=== PATIENT | male | born 1945 | race Hispanic/Latino ===

== ENCOUNTER 2018-08-27 06:52 | Day surgery (SDC) | payer OTHER, MEDICARE ==
[~2018-08-27] VITALS: Ht 167.6 cm; Wt 81.1 kg
[~2018-08-27 06:52] MED LIST: SODIUM CHLORIDE 0.9% 1000ML 1,000 ML IV ONE
[2018-08-27 07:34] VITALS: BP 169/64
[2018-08-27] MEDS ORDERED: PROPOFOL 10 MG/ML 20ML VIAL IV ONE (07:51)
[2018-08-27] MEDS ORDERED: CARB-38 PO (07:58)
[2018-08-27] MEDS ORDERED: DIPH25 PO (07:58)
[2018-08-27] MEDS ORDERED: ATOR40TA71 PO (07:58)
[2018-08-27] MEDS ORDERED: FLUT1DIS3 IH (07:58)
[2018-08-27] MEDS ORDERED: OLAN7.5T9 PO (07:58)
[2018-08-27] MEDS ORDERED: ERGO500014 PO (07:58)
[2018-08-27] MEDS ORDERED: ISOS60TA4 PO (07:58)
[2018-08-27] MEDS ORDERED: FURO20TA4 PO (07:58)
[2018-08-27] MEDS ORDERED: SITA25TA5 PO (07:58)
[2018-08-27] MEDS ORDERED: UMEC62.5 IH (07:58)
[2018-08-27] MEDS ORDERED: AMLO5TAB9 PO (07:58)
[2018-08-27] MEDS ORDERED: CARV25TA PO (07:58)
[2018-08-27] MEDS ORDERED: VITAMIN B6 (07:58)
[2018-08-27] MEDS ORDERED: OMEG-148 PO (07:58)
[2018-08-27] MEDS ORDERED: FERS325 PO (07:58)
[2018-08-27] MEDS ORDERED: AMAN100C12 PO (07:58)
[2018-08-27] MEDS ORDERED: ASPI-555 PO (07:58)
[2018-08-27] MEDS ORDERED: SERT25TA5 PO (07:58)
[2018-08-27] MEDS ORDERED: ALEN70TA10 PO (07:58)
[2018-08-27] MEDS ORDERED: LOSA50TA64 PO (07:58)
[2018-08-27] MEDS ORDERED: TAMS0.4C32 PO (07:58)
[2018-08-27] MEDS ORDERED: POLY17PO4 PO (07:58)
[2018-08-27] MEDS ORDERED: OMEP20CA10 PO (07:58)
[2018-08-27 08:05] VITALS: BP 119/45
[2018-08-27 08:10] VITALS: BP 125/51
[2018-08-27 08:15] VITALS: BP 137/56
[2018-08-27 08:23] VITALS: BP 153/56
== END 2018-08-27 08:39 | disposition home or self-care (01) ==
LOC: DAH 06:52 → ENDO 06:52
PROVIDERS: ATTEND Internal Medicine
DX: K29.50 Unspecified chronic gastritis without bleeding (principal); K31.89 Other diseases of stomach and duodenum; D50.9 Iron deficiency anemia, unspecified; K44.9 Diaphragmatic hernia without obstruction or gangrene; K22.8 Other specified diseases of esophagus; Z79.899 Other long term (current) drug therapy; K21.0 Gastro-esophageal reflux disease with esophagitis; F41.9 Anxiety disorder, unspecified; F32.9 Major depressive disorder, single episode, unspecified; M81.0 Age-related osteoporosis without current pathological fracture; E78.5 Hyperlipidemia, unspecified; D64.9 Anemia, unspecified; E07.9 Disorder of thyroid, unspecified; I25.10 Atherosclerotic heart disease of native coronary artery without angina pectoris; E11.9 Type 2 diabetes mellitus without complications; R00.1 Bradycardia, unspecified; I45.10 Unspecified right bundle-branch block
CPT/HCPCS: 43239; 82948; 88305; 93005; A4606; J2704; J7030

== ENCOUNTER 2019-10-26 08:48 | Day surgery (SDC) | payer OTHER, MEDICARE ==
[~2019-10-26] VITALS: Ht 170.2 cm; Wt 79.4 kg
[~2019-10-26 08:48] MED LIST changes: +ALEN70TA10 PO; +AMAN100C12 PO; +AMAN100T PO; +AMLO5TAB9 PO; +ATOR40TA71 PO; +CARB-38 PO; +CARV25TA PO; +ESOM40CA54 PO; +FERS325 PO; +ISOS60TA4 PO; +LEVO100T12 PO; +LISI-613 PO; +OLAN10TA20 PO; +OLAN2.5T3 PO; +OMEG-148 PO; +Pramipexole PO; +SERT25TA5 PO; +SITA25TA5 PO; -SODIUM CHLORIDE 0.9% 1000ML 1,000 ML IV ONE; +TAMS0.4C32 PO; +vitamin b PO
[2019-10-26] MEDS ORDERED: SODIUM CHLORIDE 0.9% 1000ML 1,000 ML IV ONE (10:21)
[2019-10-26 11:14] VITALS: BP 156/67
[2019-10-26] MEDS ORDERED: PROPOFOL 10 MG/ML 20ML VIAL IV ONE (11:49)
[2019-10-26 12:00] VITALS: BP 111/55
[2019-10-26] MEDS ORDERED: LACT10SO46 PO (12:00)
[2019-10-26] MEDS ORDERED: METF-444 PO (12:00)
[2019-10-26] MEDS ORDERED: DOXA8TAB81 PO (12:00)
[2019-10-26] MEDS ORDERED: FURO20TA4 PO (12:00)
[2019-10-26] MEDS ORDERED: ALBU8.5H8 IH (12:00)
[2019-10-26 12:05] VITALS: BP 127/75
[2019-10-26 12:10] VITALS: BP 140/77
[2019-10-26 12:15] VITALS: BP 134/55
[2019-10-26 12:20] VITALS: BP 131/55
== END 2019-10-26 12:45 | disposition home or self-care (01) ==
LOC: ENDO 08:48 → DAH 08:48 → ENDO 12:45
PROVIDERS: ATTEND Internal Medicine Gastroenterology
DX: K21.0 Gastro-esophageal reflux disease with esophagitis (principal); K29.70 Gastritis, unspecified, without bleeding; K31.89 Other diseases of stomach and duodenum; K74.60 Unspecified cirrhosis of liver; D37.9 Neoplasm of uncertain behavior of digestive organ, unspecified; J43.9 Emphysema, unspecified; I10 Essential (primary) hypertension; E78.5 Hyperlipidemia, unspecified; F41.9 Anxiety disorder, unspecified; F32.9 Major depressive disorder, single episode, unspecified; E11.9 Type 2 diabetes mellitus without complications; I25.10 Atherosclerotic heart disease of native coronary artery without angina pectoris; M81.0 Age-related osteoporosis without current pathological fracture; F17.210 Nicotine dependence, cigarettes, uncomplicated; Z79.4 Long term (current) use of insulin; Z86.010 Personal history of colon polyps; Z82.49 Family history of ischemic heart disease and other diseases of the circulatory system; Z82.3 Family history of stroke; Z82.5 Family history of asthma and other chronic lower respiratory diseases; Z79.899 Other long term (current) drug therapy
CPT/HCPCS: 43239; 82948; A4215; A4221; A4222; A4223; A4606; A4620; A4657; A4663; J2704; J7030

== ENCOUNTER 2023-11-12 06:52 | Day surgery (SDC) | payer MEDICARE ==
[~2023-11-12] VITALS: Ht 167.6 cm; Wt 81.6 kg
[2023-11-12] VITALS (11 sets, daily range): BP systolic 90–154; BP diastolic 50–73; PULSE 59–77; RESP 13–19
[~2023-11-12 06:52] MED LIST changes: +ALBU8.5H8 IH; -ALEN70TA10 PO; +ALEN70TA80 PO; -AMAN100C12 PO; +AMAN100C14 PO; -AMAN100T PO; +AMLO-257 PO; -AMLO5TAB9 PO; +DOXA8TAB81 PO; -ESOM40CA54 PO; +ESOM40CA66 PO; -FERS325 PO; +FURO20TA4 PO; -ISOS60TA4 PO; +ISOS60TA77 PO; +LACT10SO46 PO; -LISI-613 PO; +LISI20TA24 PO; +METF-444 PO; -OLAN10TA20 PO; +OLAN10TA73 PO; -OMEG-148 PO; +SERT-438 PO; -SERT25TA5 PO; -vitamin b PO
[2023-11-12] MEDS: 0.9%NACL 1000ML 1,000 ML IV ONE (08:30)
[2023-11-12] MEDS ORDERED: PROPOFOL 10 MG/ML 20ML VIAL IV ONE (09:19)
== END 2023-11-12 11:59 | disposition home or self-care (01) ==
LOC: ENDO 06:52 → DAH 06:52 → ENDO 11:59
PROVIDERS: ATTEND Internal Medicine Gastroenterology
DX: Z12.11 Encounter for screening for malignant neoplasm of colon (principal); K74.69 Other cirrhosis of liver; K76.6 Portal hypertension; K63.5 Polyp of colon; K62.1 Rectal polyp; K57.30 Diverticulosis of large intestine without perforation or abscess without bleeding; K31.89 Other diseases of stomach and duodenum; K22.70 Barrett's esophagus without dysplasia; K21.00 Gastro-esophageal reflux disease with esophagitis, without bleeding; K62.89 Other specified diseases of anus and rectum; K59.04 Chronic idiopathic constipation; I10 Essential (primary) hypertension; Z87.442 Personal history of urinary calculi; Z86.010 Personal history of colon polyps; Z79.01 Long term (current) use of anticoagulants; Z79.899 Other long term (current) drug therapy; Z79.4 Long term (current) use of insulin
CPT/HCPCS: 45380; 45385; 43239; 82948 ×2; J7030 ×2; J2704; A4620; A4215; A4223; A4657; A4222; A4221; A4663; A4606; J3490